=== PATIENT | male | born 1975 | race Caucasian/White ===

== ENCOUNTER → 2018-03-12 12:19 | Outpatient (CLI) | payer OTHER, SELFPAY ==
--- NOTE | 2018-03-12 | DI.RAD.S_ITS ---
PROCEDURE: XR LUMBAR SPINE 2-3V INDICATIONS: LOW BACK PAIN, HISTORY OF [id number] TECHNIQUE: 3 views of the lumbar spine were acquired. COMPARISON: [facility], , XR PELVIS 1-2V, 03/12/2018, 12:06. FINDINGS: Bones: Grade 1/2 anterolisthesis is seen at L5-S1, with associated increasing bilateral pars defects. Moderate disc space narrowing is seen at L5-S1. The disc spaces otherwise appear well-preserved. No acute fractures are seen. No suspicious lytic or blastic lesions are seen. Soft tissues: Overlying bowel gas pattern is normal. No suspicious soft tissue calcifications. IMPRESSION: Grade 1/2 L5-S1 anterolisthesis with associated pars defects and degenerative changes. Dictated by: Jeffrey Butler M.D. on 03/12/2018 at 11:51 Approved by: Jeffrey Butler M.D. on 03/12/2018 at 11:52
--- NOTE | 2018-03-12 | DI.RAD.S_ITS ---
PROCEDURE: XR PELVIS 1-2V INDICATIONS: LOW BACK PAIN, HISTORY OF [id number] TECHNIQUE: 1 view(s) of the pelvis acquired. COMPARISON: [facility], , XR LUMBAR SPINE 2-3V, 03/12/2018, 12:06. FINDINGS: Bones: No fractures or dislocations. No suspicious bony lesions. There is mild to moderate superior joint space narrowing seen of both hips, with associated remodeling changes with subchondral sclerosis and osteophyte formation. Soft tissues: Visualized bowel gas pattern is normal. No suspicious soft tissue calcifications. IMPRESSION: Age-appropriate degenerative changes of the hips. Dictated by: Jeffrey Butler M.D. on 03/12/2018 at 11:53 Approved by: Jeffrey Butler M.D. on 03/12/2018 at 11:53
== END ==
PROVIDERS: Family Provider Family Medicine; PCP Family Medicine; Visit Provider Chiropractor
DX: M43.17 Spondylolisthesis, lumbosacral region (principal); M48.07 Spinal stenosis, lumbosacral region; M54.5 Low back pain
CPT/HCPCS: 72100; 72170

== ENCOUNTER → 2018-12-02 07:26 | Outpatient (CLI) | payer OTHER, SELFPAY ==
[2018-12-02 08:41] LABS: Add Manual Diff / Slide Review NO; Basophils Absolute Auto 0 /uL (0-100); Basophils Percent Auto 0.6 % (0-2); Eosinophils Absolute Auto 100 /uL (0-450); Eosinophils Percent Auto 1.6 % (2-4); Hematocrit 44.2 % (41-53); Hemoglobin 15.1 g/dL (13.5-17.5); Lymphocytes Absolute Auto 1600 /uL (1100-4500); Lymphocytes Percent Auto 41.4 % (25-40); Mean Corpuscular HGB Conc 34.2 % (30-36); Mean Corpuscular Hemoglobin 32.6 PG (26-34); Mean Corpuscular Volume 95.4 fL (80-100); Monocytes Absolute Auto 400 /uL (0-900); Neutrophils Absolute Auto 1800 /uL (1500-7000); Neutrophils Percent Auto 45.4 % (50-75); Platelet Count 241 X10^3/uL (150-400); Red Blood Cell Count 4.63 X10^6/uL (4.5-5.9); Red Cell Distribution Width 12.7 % (11.6-14.8); White Blood Cell Count 3.9 X10^3/uL (4.5-11.0)
[2018-12-02 09:18] LABS: Alanine Aminotransferase 31 IU/L (21-72); Albumin 4.3 g/dL (3.5-5.0); Albumin Globulin Ratio 1.5 (1.0-2.8); Alkaline Phosphatase 52 U/L (38-126); Aspartate Aminotransferase 26 IU/L (17-59); Bilirubin Total 0.7 mg/dL (0.2-1.3); Blood Urea Nitrogen 18 mg/dL (9-20); Carbon Dioxide 30 mmol/L (22-32); Chloride 102 mmol/L (98-107); Cholesterol 209 mg/dL (140-199); Estimated Glomerular Filt Rate > 60.0 mL/min (>60); Globulin 2.8 g/dL (1.7-4.1); Glucose 88 mg/dL (70-100); HDL Cholesterol 59 mg/dL (40-60); HEMOLYSIS < 15 (0-50); LDL Cholesterol Calculated 133 mg/dL (<100); Potassium 3.8 mmol/L (3.4-5.1); Sodium 139 mmol/L (137-145); Total Protein 7.1 g/dL (6.3-8.2); Triglycerides 83 mg/dL (35-150)
[2018-12-02 09:47] LABS: Thyroid Stimulating Hormone 2.23 uIU/mL (0.47-4.68)
== END ==
PROVIDERS: PCP Family Medicine; Visit Provider Family Medicine
DX: E78.5 Hyperlipidemia, unspecified (principal); R89.9 Unspecified abnormal finding in specimens from other organs, systems and tissues
CPT/HCPCS: 36415; 80053; 80061; 84443; 85025

== ENCOUNTER → 2018-12-09 10:02 | Outpatient (CLI) | payer OTHER, SELFPAY ==
[2018-12-09 11:03] LABS: C-Reactive Protein Quant < 0.5 mg/dL (<1.0)
[2018-12-09 11:30] LABS: Prostate Specific Antigen 0.749 ng/mL (0.10-4.00)
[2018-12-09 11:39] LABS: Erythrocyte Sedimentation Rate 3 MM/HR (0-15)
[2018-12-09 12:17] LABS: Rheumatoid Factor < 8.6 IU/mL (<12.0)
[2018-12-11 19:26] LABS: ANA Screen, IFA Negative (Negative)
== END ==
PROVIDERS: PCP Family Medicine; Visit Provider Family Medicine
DX: M19.90 Unspecified osteoarthritis, unspecified site (principal); R32 Unspecified urinary incontinence
CPT/HCPCS: 36415; 84153; 85651; 86038; 86140; 86430

== ENCOUNTER → 2019-02-15 13:44 | Outpatient (CLI) | payer OTHER, SELFPAY ==
--- NOTE | 2019-02-15 14:59 | PM.TREADMILL ---
Cardiac Stress Test Report Referral & Results Date Patient Seen: 02/15/19 Time Patient Seen: 14:59 Requesting provider: Umberto Wong Indication: Family history, risk factors Rest ECG: Unremarkable Procedure Note: Today following both written and verbal informed consent, the patient was exercised according to a standard Cecilio protocol. The patient exercised for a total of 12 minutes 17 seconds achieving a maximum heart rate of 160 for. Patient's maximum systolic blood pressure was 152. This was an estimated 12.8 MET's. Exercise was terminated because patient's targets had been met. There are no ST-T segment changes Normal heart rate and blood pressure response to exercise Functional aerobic impairment rates about-10% on the active scale, or 110% of normal Rare PAC identified Impression: No evidence of ischemia Excellent exercise capacity (test was stopped prior to patient reaching absolute maximum due to targets having been met) Please note: Actual ECG tracings can be found in the PACS system.
== END ==
PROVIDERS: PCP Family Medicine; Visit Provider Family Medicine
DX: E78.5 Hyperlipidemia, unspecified (principal); Z82.49 Family history of ischemic heart disease and other diseases of the circulatory system
CPT/HCPCS: 93016; 93017; 93018

== ENCOUNTER → 2020-01-06 08:52 | Outpatient (CLI) | payer OTHER, SELFPAY ==
[2020-01-06 10:05] LABS: Hematocrit 45.3 % (41-53); Hemoglobin 15.3 g/dL (13.5-17.5); Mean Corpuscular HGB Conc 33.9 % (30-36); Mean Corpuscular Hemoglobin 33.1 PG (26-34); Mean Corpuscular Volume 97.8 fL (80-100); Platelet Count 229 X10^3/uL (150-400); Red Blood Cell Count 4.63 X10^6/uL (4.5-5.9); Red Cell Distribution Width 12.8 % (11.6-14.8); White Blood Cell Count 3.8 X10^3/uL (4.5-11.0)
[2020-01-06 10:50] LABS: Alanine Aminotransferase 26 IU/L (<50); Albumin 4.5 g/dL (3.5-5.0); Albumin Globulin Ratio 1.6 (1.0-2.8); Alkaline Phosphatase 54 U/L (38-126); Aspartate Aminotransferase 27 IU/L (17-59); BUN Creatinine Ratio 23.5 (6-22); Bilirubin Total 0.5 mg/dL (0.2-1.3); Blood Urea Nitrogen 20 mg/dL (9-20); Calcium 9.5 mg/dL (8.4-10.2); Carbon Dioxide 29 mmol/L (22-32); Chloride 103 mmol/L (98-107); Cholesterol 214 mg/dL (140-199); Estimated Glomerular Filt Rate > 60.0 mL/min (>60); Globulin 2.9 g/dL (1.7-4.1); Glucose 92 mg/dL (70-100); HDL Cholesterol 65 mg/dL (40-60); HEMOLYSIS < 15 (0-50); LDL Cholesterol Calculated 130 mg/dL (<100); Potassium 4.7 mmol/L (3.4-5.1); Sodium 139 mmol/L (137-145); Total Protein 7.4 g/dL (6.3-8.2); Triglycerides 93 mg/dL (35-150)
[2020-01-06 11:08] LABS: Prostate Specific Antigen Scrn 0.605 ng/mL (0.1-4.0)
[2020-01-06 15:02] LABS: Neutrophils Absolute Manual 1824 /uL (3000-5900); RBC Morphology Normal Morphology; Total Cells Counted 100
== END ==
PROVIDERS: PCP Family Medicine; Referring Provider Family Medicine; Visit Provider Family Medicine
DX: Z13.1 Encounter for screening for diabetes mellitus (principal); E78.5 Hyperlipidemia, unspecified; Z12.5 Encounter for screening for malignant neoplasm of prostate
CPT/HCPCS: 36415; 80053; 80061; 85025; G0103

== ENCOUNTER → 2020-06-26 16:15 | Outpatient (CLI) | payer OTHER, SELFPAY ==
[2020-06-26 16:21] LABS: Bacteria Urine None Seen
[2020-06-26 17:03] LABS: Appearance Urine UA CLEAR; Bilirubin Urine UA NEGATIVE (NEGATIVE); Color Urine UA YELLOW; Glucose Urine UA NEGATIVE (Negative); Ketones Urine UA NEGATIVE (NEGATIVE); Leukocyte Esterase Urine UA NEGATIVE (NEGATIVE); Nitrite Urine UA NEGATIVE (Negative); Occult Blood Urine UA TRACE-INTACT (Negative); Protein Urine UA NEGATIVE (Negative); Specific Gravity Urine UA 1.015 (1.000-1.035); Urobilinogen Urine UA 0.2 E.U./dL (0.2)
[2020-06-26 17:16] LABS: Culture Indicated Urine Cult Not Indicated; RBC Urine 0-1/HPF (0-5/HPF); WBC Urine 0-1/HPF (0-5/HPF)
== END ==
PROVIDERS: PCP Family Medicine; Referring Provider Family Medicine; Visit Provider Family Medicine
DX: N50.89 Other specified disorders of the male genital organs (principal)
CPT/HCPCS: 81001

== ENCOUNTER → 2021-01-17 10:22 | Outpatient (CLI) | payer OTHER, SELFPAY ==
--- NOTE | 2021-01-17 10:25 | DI.RAD.S_ITS ---
PROCEDURE: XR SHOULDER LT MIN 2V INDICATIONS: lef shoulder pain TECHNIQUE: 3 views of the shoulder were acquired. COMPARISON: None. FINDINGS: Bones: No fractures or dislocations. No suspicious bony lesions. Visualized ribs appear intact. Soft tissues: No suspicious soft tissue calcifications. IMPRESSION: Normal left shoulder Dictated by: Brian Pink M.D. on 01/17/2021 at 11:01 Approved by: Brian Pink M.D. on 01/17/2021 at 11:02
[2021-01-17 11:14] LABS: Add Manual Diff / Slide Review NO; Basophils Absolute Auto 0 /uL (0-100); Basophils Percent Auto 0.2 % (0-2); Eosinophils Absolute Auto 0 /uL (0-450); Hematocrit 44.9 % (41-53); Hemoglobin 15.2 g/dL (13.5-17.5); Lymphocytes Absolute Auto 1200 /uL (1100-4500); Lymphocytes Percent Auto 26.7 % (25-40); Mean Corpuscular HGB Conc 33.9 % (30-36); Mean Corpuscular Hemoglobin 33.3 PG (26-34); Mean Corpuscular Volume 98.1 fL (80-100); Monocytes Absolute Auto 500 /uL (0-900); Monocytes Percent Auto 10.5 % (3-14); Neutrophils Absolute Auto 2700 /uL (1500-7000); Neutrophils Percent Auto 61.6 % (50-75); Platelet Count 255 X10^3/uL (150-400); Red Blood Cell Count 4.57 X10^6/uL (4.5-5.9); Red Cell Distribution Width 13.1 % (11.6-14.8); White Blood Cell Count 4.3 X10^3/uL (4.5-11.0)
[2021-01-17 11:29] LABS: Alanine Aminotransferase 27 IU/L (<50); Albumin 4.3 g/dL (3.5-5.0); Albumin Globulin Ratio 1.4 (1.0-2.8); Alkaline Phosphatase 56 U/L (38-126); Aspartate Aminotransferase 32 IU/L (17-59); BUN Creatinine Ratio 19.5 (6-22); Bilirubin Total 0.5 mg/dL (0.2-1.3); Blood Urea Nitrogen 16 mg/dL (9-20); Calcium 9.7 mg/dL (8.4-10.2); Carbon Dioxide 32 mmol/L (22-32); Chloride 101 mmol/L (98-107); Cholesterol 211 mg/dL (140-199); Estimated Glomerular Filt Rate > 60.0 mL/min (>60); Globulin 3.1 g/dL (1.7-4.1); Glucose 105 mg/dL (70-100); HDL Cholesterol 75 mg/dL (40-60); HEMOLYSIS < 15 (0-50); LDL Cholesterol Calculated 119 mg/dL (<100); Potassium 4.2 mmol/L (3.4-5.1); Sodium 138 mmol/L (137-145); Total Protein 7.4 g/dL (6.3-8.2); Triglycerides 86 mg/dL (35-150)
[2021-01-17 12:11] LABS: TSH w/ Reflex to FT4 2.67 uIU/mL (0.47-4.68)
== END ==
PROVIDERS: Family Provider Family Medicine; PCP Family Medicine; Referring Provider Family Medicine; Visit Provider Family Medicine
DX: M25.512 Pain in left shoulder (principal); E78.5 Hyperlipidemia, unspecified; J45.909 Unspecified asthma, uncomplicated
CPT/HCPCS: 36415; 73030; 80053; 80061; 84443; 85025

== ENCOUNTER 2021-03-09 08:15 | Outpatient (RCR) | payer OTHER, SELFPAY ==
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
--- NOTE | 2021-01-16 15:53 | PT.OPPOC ---
Addendum entered and electronically signed by Deyanira Chopra, STEPHEN 03/09/21 09:27: Requested to send to Dr. Deluna after d/c Original Note: Physical, Occupational & Speech Therapy At [facility] Current Diagnoses Pain in unspecified shoulder (01/16/21) Visit Care Team Role Provider Type Carlos Deluna MD Attending Provider Physician Family Provider Primary Care Provider Referring Provider Specialty: Family Practice Address: [address] [place] [address], [id number] Email: [email or web address] Plan Of Care PT-OP-T Assessment and Plan Start: 01/12/21 16:10 Freq: Status: Active Protocol: Document 01/16/21 13:26 MB (Rec: 01/16/21 15:53 MB [id number]) Physical Therapy Assessment Rehab Potential Rehabilitation Potential Fair Evaluation Complexity Number of Personal Factors/Comorbidities 1-2 Number of Body Systems Impaired 1-2 Clinical Presentation at Evaluation Evolving Impairments Impairments Activity Tolerance,Functional Activities,Functional Mobility ,Pain,Posture,ROM,Soft Tissue Mobility,Strength Goals 4 Sewing Machine Adjuster Goal (LTG) Pt will perform progressive HEP with I including postural, flexibility, stabilization and strengthening exercises to improve pain and strength by 03/18/21. LTG Duration 8 weeks 3 Sewing Machine Adjuster Goal (LTG) Pt will present with equal B shoulder extension to improve functional tasks such as putting on seatbelt by 03/18/21. 2 Sewing Machine Adjuster Goal (LTG) Pt will present with 5/5 B shoulder ER and IR strength to improve overall UE function by 03/18/21. LTG Duration 8 weeks 1 Halfway Goal (LTG) Pt will present with an improved QuickDASH score to reflect no more than 5% impairment to allow return to normal active lifestyle by 03/18. LTG Duration 8 weeks Assessment Summary Assessment Pt is a 45 y/o male presenting with left shoulder pain that can be anterior, posterior and close to the arm pit depending on movement. The pain started after he did heavy hammering on concrete in diagonal plane while standing . His left shoulder was moving into IR and horizontal adduction across the front of his body. He presents with reduced active left shoulder extension in standing compared to the right and reports anterior shoulder pain. He does not participate with horizontal abduction AROM and reports concern for pain. His strength in many positions is pretty good and he does not have limited passive ER or IR in hook lying. He does present with some mild end-range limitation of active left shoulder IR in standing. He is hypermobile and strong overall and this may mask an injury to the labrum. Pain in different areas is concerning for injury. Also, his pain is getting worse. He sees Dr. Deluna tomorrow and recommend ortho consult and diagnostic testing to determine injury. Recommend start PT to see if conservative therapy helps and he will benefit from postural , thoracic flexibility, stablization and strengthening interventions. He states that he tried pull ups that hurt him and that he does push-ups everyday. PT does recommend that he stops the push-ups as these provoke pect and anterior tightness which does not help pain and limitations with extension and horizontal abduction. PT ed pt in this. Physical Therapy Plan Frequency and Duration Frequency of Treatment 2x/Week Duration of Treatment 8 weeks Plan of Care Start Date 01/16/21 Plan of Care End Date 03/19/21 Therapeutic Interventions Therapeutic Interventions Balance Training,Canalithic Repositioning,Home Exercise Program,Joint Mobilizations, Manual Therapy,Neuromuscular Re-education,Patient/Caregiver Education,Self-Care/Home Management,Soft Tissue Mobilization,Taping, Therapeutic Activities, Therapeutic Exercises Modalities Cold Pack/Ice Massage,Hot Packs,Ultrasound Next Visit Focus/Plan Next Note Type Treatment Note Next Visit Plan Consider lying over pool noodle for thoracic and pect stretch vs side lying open book with elbows bent and hands behind head with rib breathing to work on pect and thoracic mobility, ed in scapular retraction in hook lying and against wall, possible ER exercise with band standing with back against wall and ed in scapular retraction, other stabilization exercises Plan of Care Dates Plan of Care Start Date 01/16/21 Plan of Care End Date 03/19/21 Electronically Signed by: Deyanira Chopra, PT 01/16/21 3226 Please Sign and Return: I have reviewed this Plan of Care and certify that the skilled therapy services above are required to meet the patient?s needs. Physician Signature Date Printed Name and Credentials Clinical Instructor Signature Printed Name and Credentials
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
== END 2021-03-09 09:01 | disposition home or self-care (01) ==
LOC: PHYS 08:15
PROVIDERS: Family Provider Family Medicine; PCP Family Medicine; Referring Provider Family Medicine; Visit Provider Family Medicine
DX: M25.519 Pain in unspecified shoulder (principal)
CPT/HCPCS: 97110; 97140; 97161; 97535

== ENCOUNTER → 2021-03-30 09:07 | Outpatient (CLI) | payer OTHER, SELFPAY ==
[2021-03-30 11:36] LABS: COVID19 -Nasal RAPID Negative (Negative)
== END ==
PROVIDERS: Family Provider Family Medicine; PCP Family Medicine; Visit Provider Surgery
DX: Z20.822 Contact with and (suspected) exposure to COVID-19 (principal); Z01.812 Encounter for preprocedural laboratory examination
CPT/HCPCS: 87635; C9803

== ENCOUNTER 2021-04-02 08:11 | Day surgery (SDC) | payer OTHER, SELFPAY ==
[2021-04-02 08:30] VITALS: BP 120/68; PULSE 70; RESP 14; TEMP 36.5; O2SAT 99; BMI 22.7
[2021-04-02] MEDS: LACTATED RINGERS 1,000 ML 42 ML IV (08:30)
--- NOTE | 2021-04-02 08:58 | P.HP_ITS ---
History of Present Illness History of Present Illness Date Patient Seen: 04/02/21 Time Patient Seen: 08:58 Chief complaint: SCREENING COLONOSCOPY Narrative: The patient presents for colorectal sreening. Previous colonoscopy 5 years ago demonstrated benign polyps Family history of malignant colonic polyp. On further history denies any recent gastrointestinal symptoms. No nausea, vomiting, abdominal pain, loss of appetite, unexplained weight loss, change in bowel habits, diarrhea, constipation, melena, hematochezia, or bright red blood per rectum. Patient History Medical History (Updated 01/18/21 @ 08:28 by Carlos Deluna MD) Allergies Asthma Chicken pox (~1976) Chronic back pain (~2015) Epididymitis Mumps (~1982) Perthes disease Rubella (~1984) Spondylisthesis (~2002) Surgical History (Updated 09/06/20 @ 21:17 by Kathy Rosado) Anesthesia History of cardiovascular stress test (~02/2019) History of colonoscopy (~04/2015) Status post arthroscopy of hip (~1978) [place] teeth removed (~2001) Family & Social History Family History (Updated 09/06/20 @ 21:29 by Kathy Rosado) Brother Age: 58 Diabetes mellitus Obesity Hypertension Father Dementia Pulmonary embolism History of heart attack Alzheimers disease Cancer Diabetes mellitus Heart disease Hypertension High cholesterol Stroke Perthe's disease of hip Grandmother Heart disease Congestive heart failure Stroke Autoimmune disease Grandfather Heart disease Grandmother Heart disease Sister Age: 63 Cancer Perthe's disease of hip Mother Thyroid disease Brother Sleep apnea Grandfather Heart disease Prostate disease Grandfather Cancer Grandmother Diabetes mellitus Grandmother Diabetes mellitus Heart disease Social History: household members spouse Tobacco & Substance use: Smoking Status Never smoker alcohol intake current alcohol intake frequency holiday/special occasion Substance Use Type does not use Meds Home Medications and Allergies Home Medications Medication Instructions Recorded Confirmed Type No Known Home Medications 04/02/21 04/02/21 History Allergies Allergy/AdvReac Type Severity Reaction Status Date / Time ANESTHESIA AdvReac Mild SENSITIVITY-HARD Uncoded 04/02/21 08:26 TO WAKE UP 01/11/15 Review of Systems Review of Systems ROS: Yes All systems reviewed with the patient and are negative except as otherwise documented Exam Vital Signs (past 8 hours): - 04/02/21 08:30 Temperature 97.7 F Pulse Rate 70 Respiratory Rate 14 Blood Pressure 120/68 Pulse Oximetry 99 Oxygen Delivery Method Room Air Narrative Exam Narrative: Constitutional-he is oriented to person, place and time. No apparent distress Cardiovascular- regular rate, no peripheral edema Pulmonary-unlabored respiratory effort, no audible wheezing Abdominal-soft, non-tender, non-distended Musculoskeletal-no cyanosis or clubbing Neurological-nonfocal, normal strength throughout, normal gait. Skin-warm and dry Assessment & Plan Assessment & Plan narrative: The patient requires colorectal screening and colonoscopy is recommended. Technical details were discussed. Risks, benefits, alternatives explained. Risks including but not limited to myocardial infarction, aspiration, bleeding, pain, missed lesion, incomplete examination, need for further radiographic studies, colonic perforation, and need for major abdominal surgery were discussed. All questions were answered to their s atisfaction, and they are in agreement with this plan.
[2021-04-02] MEDS: fentaNYL 250 MCG/5 ML INJ IV (09:10)
[2021-04-02] MEDS: MIDAZOLAM 5 MG/5 ML VIAL IV (09:10)
--- NOTE | 2021-04-02 09:27 | PM.OP.ENDO ---
Operative Date/Time/Diagnoses Date of procedure: 04/02/21 Time of procedure: 09:27 Pre-op diagnosis: personal history of colonic polyps Post-op diagnosis: same Procedure & Clinicians Study performed: colonoscopy Same procedure as scheduled: Yes Indications: personal history of colonic polyps Surgeon: Colten Antunez Procedure Notes Procedure in detail: Medications: Conscious sedation using 5mg IV midazolam and 150mcg IV of fentanyl The history and physical was performed/updated and the patient is ASA class is 2. The procedure was discussed in detail with the patient. Potential risks complications including infection, bleeding, missed diagnosis, perforation, need for surgery, and were explained. Their questions were answered and informed consent was obtained. Patient was brought to the procedure room and placed standard monitoring equipment. The patient's vital signs were monitored continuously throughout the entire procedure. Prior to starting time-out was performed. The patient was placed in the left lateral recumbent position. Procedural sedation was administered. Examination began with a thorough inspection of the perianal area there was no evidence of fissures, fistulae, external hemorrhoids or cutaneous malignancy. The colonoscopy scope was then placed into the anal canal and was advanced to the cecum, which was identified by the ileocecal valve, the appendiceal orifice and the confluence of the taenia. The scope was then slowly withdrawn examining colon thoroughly in all directions, irrigating it of any residual stool. FINDINGS 1. No masses or polyps 2. No colitis 3. Normal healthy colon The patient tolerated the procedure well. They will be discharged once criteria are met. The prep was of good/excellent quality. The withdrawl time was 6 minutes. The sedation time was 23 minutes. Specimen(s): none sent Complications: none Impression: normal colonoscopy Post-procedure Recommendations: Colonscopy in 5 years Disposition: same day surgery
[2021-04-02 09:31] VITALS: BP 105/59; PULSE 16; RESP 16; TEMP 36.3; O2SAT 96
[2021-04-02 09:36] VITALS: BP 111/70; PULSE 65; RESP 16; O2SAT 98
[2021-04-02 09:52] VITALS: BP 114/68; PULSE 66; RESP 16; TEMP 36.7; O2SAT 99
--- NOTE | 2021-04-02 09:56 | SUR.PHASEII ---
Drinking po flds, belly soft, wanting to go, ride called, pt left when ready and left in stable condition.
== END 2021-04-02 09:56 | disposition home or self-care (01) ==
PROVIDERS: Family Provider Family Medicine; PCP Family Medicine; Referring Provider Surgery; Visit Provider Surgery
PROC: 0DJD8ZZ Inspection of Lower Intestinal Tract, Via Natural or Artificial Opening Endoscopic (ICD-10-PCS; CPT 45378; principal; 2021-04-02 09:15)
DX: Z12.11 Encounter for screening for malignant neoplasm of colon (principal); Z86.010 Personal history of colon polyps
CPT/HCPCS: 45378; 99152; J2250; J3010

== ENCOUNTER → 2021-08-19 09:30 | Outpatient (CLI) | payer OTHER, SELFPAY ==
--- NOTE | 2021-08-19 09:31 | DI.RAD.S_ITS ---
PROCEDURE: XR ANKLE RT MIN 3V INDICATIONS: trauma, ATFL pain, rt lateral ankle/fibular pain TECHNIQUE: 3 views of the ankle were acquired. COMPARISON: None. FINDINGS: Bones: There is a mildly displaced fracture of the lateral aspect of the talus extending to the articular surface. In addition there is likely a nondisplaced fracture of the posterior malleolus. Alignment is normal. Minimal spurring of the medial aspect of the tibiotalar joint. Soft tissues: Soft tissue swelling and joint effusion. IMPRESSION: Mildly displaced fracture of the lateral tibia at the level of the distal tibial fibular joint with intra-articular extension. In addition there is a nondisplaced fracture of the posterior malleolus. Dictated by: Rod Arnold D.O. on 08/19/2021 at 9:02 Approved by: Rod Arnold D.O. on 08/19/2021 at 9:04
--- NOTE | 2021-08-19 09:31 | DI.RAD.S_ITS ---
PROCEDURE: XR KNEE RT 3V INDICATIONS: trauma, ATFL pain, rt lateral ankle/proximal fibular pain TECHNIQUE: 3 views of the knee were acquired. COMPARISON: [facility], CR, XR ANKLE RT MIN 3V, 08/19/2021, 9:24. FINDINGS: Bones: There is a nondisplaced oblique fracture of the proximal fibular diaphysis. No additional fracture. Joint spacing is maintained. Alignment is normal. Soft tissues: No joint effusion. Benign appearing soft tissue calcifications of the leg. IMPRESSION: Nondisplaced oblique fracture of the proximal fibular diaphysis. Dictated by: Rod Arnold D.O. on 08/19/2021 at 9:04 Approved by: Rod Arnold D.O. on 08/19/2021 at 9:06
== END ==
PROVIDERS: Family Provider Family Medicine; PCP Family Medicine; Referring Provider Nurse Practitioner Critical Care Medicine; Visit Provider Nurse Practitioner Critical Care Medicine
DX: S92.141A Displaced dome fracture of right talus, initial encounter for closed fracture (principal); S82.54XA Nondisplaced fracture of medial malleolus of right tibia, initial encounter for closed fracture; S82.435A Nondisplaced oblique fracture of shaft of left fibula, initial encounter for closed fracture; X58.XXXA Exposure to other specified factors, initial encounter
CPT/HCPCS: 73562; 73610

== ENCOUNTER 2021-08-19 11:31 | Emergency (ER) | payer OTHER, SELFPAY ==
[2021-08-19 12:19] VITALS: BP 126/77; PULSE 87; RESP 16; TEMP 36.8; O2SAT 97; BMI 23.5
--- NOTE | 2021-08-19 12:37 | DI.CT.S_ITS ---
PROCEDURE: CT LE RT WO CON INDICATIONS: ankle fracture TECHNIQUE: Noncontrast 1-1.5 mm axial sections acquired from the mid-patella to the proximal tibia, with coronal and sagittal reformats. COMPARISON: [facility], CR, XR KNEE RT 3V, 08/19/2021, 9:24. FINDINGS: Image quality: Excellent. Bones: Again noted is a mildly displaced fracture of the lateral aspect of the distal tibia at the level of the distal tibial fibular syndesmosis. This demonstrates approximately 3 mm of lateral displacement. Additional mildly comminuted and displaced predominantly oblique fracture of the proximal fibular diaphysis is noted. There is approximately 2 mm of lateral displacement. Nondisplaced very small fracture of the posterior malleolus is noted. There is mild degenerative tricompartment spurring of the knee. No tibial plateau fracture. Soft tissues: Small knee joint effusion. Moderate size ankle joint effusion. There is soft tissue swelling noted adjacent to the fractures within the proximal leg and ankle. Benign appearing soft tissue calcifications within the posterior leg. IMPRESSION: Mildly displaced fractures of the proximal fibula and distal tibia as previously noted. Additional nondisplaced fracture of the posterior malleolus also again identified. No additional fractures. Very mild degenerative changes of the knee. Dictated by: Rod Arnold D.O. on 08/19/2021 at 12:23 Approved by: Rod Arnold D.O. on 08/19/2021 at 12:29
--- NOTE | 2021-08-19 12:39 | ED.LOWEXIN ---
HPI - Extremity Injury (Lower) General Chief Complaint: Extremity Injury, Lower Stated Complaint: Fibula Injury, Sent from [facility] for Further Eval Time Seen by Provider: 08/19/21 12:16 Source: patient Mode of arrival: Ambulatory History of Present Illness HPI Narrative: Patient presents to the ED from the walk-in clinic diagnosed with a ankle fracture and was placed in a walking boot and was referred to the ED for additional imaging. Patient reports that he was skiing suffered a fall and as result twisted his ankle the man had severe pain immediately upon the fall. Ankle appears stable at this time secured in the walking boot pain is tolerable at this time. No other reported injury or complaints noted. Related Data Home Medications Medication Instructions Recorded Confirmed No Known Home Medications 04/02/21 08/19/21 Previous Rx's Medication Instructions Recorded ketoconazole 2 % topical cream See Rx Instructions TOPICAL BID 04/20/21 #60 g Allergies Allergy/AdvReac Type Severity Reaction Status Date / Time ANESTHESIA AdvReac Mild SENSITIVITY-HARD Uncoded 08/19/21 09:07 TO WAKE UP 01/11/15 Review of Systems Constitutional Constitutional: Denies chills, Denies fatigue, Denies fever(s), Denies frequent falls, Denies lethargy and Denies weakness Eyes Eyes: Denies change in vision, Denies eye discharge, Denies irritation and Denies loss of vision ENT Ears, Nose, Mouth, and Throat: Denies change in voice, Denies dizziness, Denies neck pain, Denies sore throat and Denies throat swelling Cardiovascular Cardiovascular: Denies chest pain, Denies irregular heart rhythm, Denies lightheadedness, Denies palpitations, Denies dyspnea, Denies dyspnea on exertion and Denies orthopnea Respiratory Respiratory: Denies cough, Denies dyspnea, Denies dyspnea on exertion and Denies wheezing Gastrointestinal Gastrointestinal: Denies abdominal pain, Denies change in bowel habits, Denies diarrhea, Denies nausea and Denies vomiting Genitourinary Genitourinary: Denies hematuria, Denies flank pain, Denies urinary incontinence and Denies urinary urgency Musculoskeletal Musculoskeletal: Denies back pain, Reports arthralgias, Reports joint swelling, Denies muscle weakness, Denies neck pain, Denies numbness and Denies tingling Integumentary/Breasts Skin/Breast: Denies pruritus, Denies erythema, Denies rash and Denies wounds Neurologic Neurologic: Denies behavioral changes, Denies confusion, Denies dizziness, Denies frequent falls, Denies loss of vision, Denies numbness, Denies tingling and Denies weakness Psychiatric Psychiatric: Denies anxiety, Denies behavioral changes, Denies confusion, Denies depression, Denies homicidal ideation and Denies suicidal ideation Endocrine Endocrine: Denies fatigue, Denies flushing and Denies palpitations Hematologic/Lymphatic Hematologic/Lymphatic: Denies easy bruising Allergic/Immunologic Allergic/Immunologic: Denies urticaria, Denies throat swelling and Denies wheezing Patient History Medical History Allergies Asthma Chicken pox (~1976) Chronic back pain (~2015) Epididymitis Mumps (~1982) Perthes disease Rubella (~1984) Spondylisthesis (~2002) Surgical History Anesthesia History of cardiovascular stress test (~02/2019) History of colonoscopy (~04/2015) Status post arthroscopy of hip (~1978) [place] teeth removed (~2001) Family History Brother Age: 58 Diabetes mellitus Obesity Hypertension Father Dementia Pulmonary embolism History of heart attack Alzheimers disease Cancer Diabetes mellitus Heart disease Hypertension High cholesterol Stroke Perthe's disease of hip Grandmother Heart disease Congestive heart failure Stroke Autoimmune disease Grandfather Heart disease Grandmother Heart disease Sister Age: 63 Cancer Perthe's disease of hip Mother Thyroid disease Brother Sleep apnea Grandfather Heart disease Prostate disease Grandfather Cancer Grandmother Diabetes mellitus Grandmother Diabetes mellitus Heart disease Social History household members: spouse Smoking Status: Never smoker alcohol intake: current Smoking Status: Never smoker alcohol intake frequency: holidays/special occasions only Substance Use Type: does not use Exam Initial Vital Signs Initial Vital Signs: Vital Signs Temperature 98.3 F 08/19/21 12:19 Pulse Rate 87 08/19/21 12:19 Respiratory Rate 16 08/19/21 12:19 Blood Pressure 126/77 08/19/21 12:19 Pulse Oximetry 97 08/19/21 12:19 Const General: cooperative, healthy appearing, comfortable and well developed Nutritional Appearance: average body habitus Orientation: Orientation Extrem Right lower extremity: normal to inspection and ankle Course Course Course Narrative: Dr. Powell was contacted and the CT results were discussed. Patient will need to undergo outpatient surgery, the clinic will contact the patient tomorrow to arrange for the clinic visit. Orders Ordered: ED Orders 08/19/21 12:37 CT LE RT wo con Stat Discontinued Medications Ibuprofen (Ibuprofen 600 Mg Tablet) 600 mg PO NOW ONE Stop: 08/19/21 13:34 Last Admin: 08/19/21 13:44 Dose: 600 mg Documented by: Consultations Consultation #1: Dr. Powell was consulted and the CT results were reviewed. Vital Signs Vital signs: Vital Signs - 8 hr 08/19/21 12:19 Temperature 98.3 F Pulse Rate 87 Respiratory Rate 16 Blood Pressure 126/77 Pulse Oximetry 97 MDM - Extremity Injury (Lower) Differential Diagnosis Differential diagnosis: Likely ankle fracture Imaging Data CT Lower Extremity: Radiologist's Impression: PROCEDURE:? CT LE RT WO CON ? INDICATIONS:? ankle fracture ? TECHNIQUE:? Noncontrast 1-1.5 mm axial sections acquired from the mid-patella to the proximal tibia, with coronal and sagittal reformats.? ? COMPARISON:? [facility], CR, XR KNEE RT 3V, 08/19/2021, 9:24. ? FINDINGS:? Image quality:? Excellent.? ? Bones:? Again noted is a mildly displaced fracture of the lateral aspect of the distal tibia at the level of the distal tibial fibular syndesmosis.? This demonstrates approximately 3 mm of lateral displacement.? Additional mildly comminuted and displaced predominantly oblique fracture of the proximal fibular diaphysis is noted.? There is approximately 2 mm of lateral displacement.? Nondisplaced very small fracture of the posterior malleolus is noted.? There is mild degenerative tricompartment spurring of the knee.? No tibial plateau fracture. ? Soft tissues:? Small knee joint effusion.? Moderate size ankle joint effusion.? There is soft tissue swelling noted adjacent to the fractures within the proximal leg and ankle.? Benign appearing soft tissue calcifications within the posterior leg. ? ? IMPRESSION:? ? Mildly displaced fractures of the proximal fibula and distal tibia as previously noted.? Additional nondisplaced fracture of the posterior malleolus also again identified.? No additional fractures. ? Very mild degenerative changes of the knee. Discharge Plan Departure Patient Disposition: Home Clinical Impression: Ankle fracture Activity Restrictions/Additional Instructions: Nonweightbearing keep splint on at all times. Prescriptions: No Action ketoconazole 2 % cream See Rx Instructions topical BID Qty: 60 0RF Rx Instructions: Apply topically to affected area twice daily No Known Home Medications 0RF Referrals: Carlos Deluna MD [Primary Care Provider] -
[2021-08-19 13:40] VITALS: BP 127/72; PULSE 73; RESP 18; O2SAT 98
[2021-08-19] MEDS: IBUPROFEN 600 MG TABLET PO (13:44)
--- NOTE | 2021-08-19 14:05 | PC.NURSE ---
in walking boot/support sent here for ct of right lower leg secondary to skiing accident/fracture
[2021-08-19 14:44] VITALS: BP 116/73; PULSE 73; RESP 16; O2SAT 98
== END 2021-08-19 15:00 | disposition home or self-care (01) ==
PROVIDERS: Emergency Provider Physician Assistant; Family Provider Family Medicine; PCP Family Medicine
DX: S82.831A Other fracture of upper and lower end of right fibula, initial encounter for closed fracture (principal); S82.301A Unspecified fracture of lower end of right tibia, initial encounter for closed fracture; S82.891A Other fracture of right lower leg, initial encounter for closed fracture; W18.30XA Fall on same level, unspecified, initial encounter; Y93.23 Activity, snow (alpine) (downhill) skiing, snowboarding, sledding, tobogganing and snow tubing; S92.141A Displaced dome fracture of right talus, initial encounter for closed fracture
CPT/HCPCS: 29505; 73562; 73610; 73700; 99283; 99284

== ENCOUNTER → 2022-04-10 07:19 | Outpatient (CLI) | payer OTHER, SELFPAY ==
[2022-04-10 08:53] LABS: Add Manual Diff / Slide Review NO; Basophils Absolute Auto 0 /uL (0-100); Basophils Percent Auto 0.3 % (0-2); Eosinophils Absolute Auto 100 /uL (0-450); Eosinophils Percent Auto 1.1 % (2-4); Hematocrit 43.7 % (41-53); Hemoglobin 14.9 g/dL (13.5-17.5); Lymphocytes Absolute Auto 1500 /uL (1100-4500); Lymphocytes Percent Auto 28.6 % (25-40); Mean Corpuscular HGB Conc 34.1 % (30-36); Mean Corpuscular Hemoglobin 32.9 PG (26-34); Mean Corpuscular Volume 96.5 fL (80-100); Monocytes Absolute Auto 600 /uL (0-900); Monocytes Percent Auto 11.3 % (3-14); Neutrophils Absolute Auto 3100 /uL (1500-7000); Neutrophils Percent Auto 58.7 % (50-75); Platelet Count 247 X10^3/uL (150-400); Red Blood Cell Count 4.53 X10^6/uL (4.5-5.9); Red Cell Distribution Width 13.3 % (11.6-14.8); White Blood Cell Count 5.3 X10^3/uL (4.5-11.0)
[2022-04-10 09:08] LABS: Alanine Aminotransferase 30 IU/L (<50); Albumin 4.2 g/dL (3.5-5.0); Albumin Globulin Ratio 1.5 (1.0-2.8); Alkaline Phosphatase 49 U/L (38-126); Aspartate Aminotransferase 26 IU/L (17-59); BUN Creatinine Ratio 22.5 (6-22); Bilirubin Total 0.7 mg/dL (0.2-1.3); Blood Urea Nitrogen 18 mg/dL (9-20); Carbon Dioxide 30 mmol/L (22-32); Chloride 103 mmol/L (98-107); Cholesterol 234 mg/dL (140-199); Estimated Glomerular Filt Rate > 60 mL/min (>60); Globulin 2.8 g/dL (1.7-4.1); Glucose 96 mg/dL (70-100); HDL Cholesterol 77 mg/dL (40-60); HEMOLYSIS < 15 (0-50); LDL Cholesterol Calculated 139 mg/dL (<100); Potassium 4.6 mmol/L (3.4-5.1); Sodium 139 mmol/L (137-145); Triglycerides 92 mg/dL (35-150)
[2022-04-10 09:38] LABS: TSH w/ Reflex to FT4 3.26 uIU/mL (0.47-4.68)
== END ==
PROVIDERS: Family Provider Family Medicine; PCP Family Medicine; Referring Provider Family Medicine; Visit Provider Family Medicine
DX: E78.5 Hyperlipidemia, unspecified (principal); M19.90 Unspecified osteoarthritis, unspecified site; S82.399A Other fracture of lower end of unspecified tibia, initial encounter for closed fracture; Z82.49 Family history of ischemic heart disease and other diseases of the circulatory system
CPT/HCPCS: 36415; 80053; 80061; 81241; 84443; 85025

== ENCOUNTER → 2023-07-02 09:06 | Outpatient (CLI) | payer OTHER, SELFPAY ==
[2023-07-02 10:56] LABS: Add Manual Diff / Slide Review NO; Basophils Absolute Auto 0 /uL (0-100); Basophils Percent Auto 0.6 % (0-2); Eosinophils Absolute Auto 100 /uL (0-450); Eosinophils Percent Auto 1.6 % (2-4); Hematocrit 44.2 % (41-53); Lymphocytes Absolute Auto 1500 /uL (1100-4500); Lymphocytes Percent Auto 42.2 % (25-40); Mean Corpuscular HGB Conc 33.9 % (30-36); Mean Corpuscular Hemoglobin 32.6 PG (26-34); Monocytes Absolute Auto 400 /uL (0-900); Monocytes Percent Auto 11.9 % (3-14); Neutrophils Absolute Auto 1600 /uL (1500-7000); Neutrophils Percent Auto 43.7 % (50-75); Platelet Count 250 X10^3/uL (150-400); Red Blood Cell Count 4.61 X10^6/uL (4.5-5.9); Red Cell Distribution Width 13.2 % (11.6-14.8); White Blood Cell Count 3.6 X10^3/uL (4.5-11.0)
[2023-07-02 11:27] LABS: Alanine Aminotransferase 33 IU/L (<50); Albumin 4.2 g/dL (3.5-5.0); Albumin Globulin Ratio 1.3 (1.0-2.8); Alkaline Phosphatase 46 U/L (38-126); Aspartate Aminotransferase 29 IU/L (17-59); Bilirubin Total 0.8 mg/dL (0.2-1.3); Blood Urea Nitrogen 15 mg/dL (9-20); Calcium 9.5 mg/dL (8.4-10.2); Carbon Dioxide 31 mmol/L (22-32); Chloride 100 mmol/L (98-107); Cholesterol 239 mg/dL (140-199); Estimated Glomerular Filt Rate > 60 mL/min (>60); Globulin 3.2 g/dL (1.7-4.1); Glucose 89 mg/dL (70-100); HDL Cholesterol 77 mg/dL (40-60); HEMOLYSIS < 15 (0-50); LDL Cholesterol Calculated 145 mg/dL (<100); Potassium 4.8 mmol/L (3.4-5.1); Sodium 137 mmol/L (137-145); Total Protein 7.4 g/dL (6.3-8.2); Triglycerides 85 mg/dL (35-150)
[2023-07-02 12:00] LABS: TSH w/ Reflex to FT4 2.75 uIU/mL (0.47-4.68)
== END ==
PROVIDERS: Family Provider Family Medicine; PCP Family Medicine; Referring Provider Family Medicine; Visit Provider Family Medicine
DX: E78.5 Hyperlipidemia, unspecified (principal)
CPT/HCPCS: 36415; 80053; 80061; 84443; 85025

== ENCOUNTER → 2025-01-07 07:16 | Outpatient (CLI) | payer OTHER, SELFPAY ==
[2025-01-07 08:02] LABS: Add Manual Diff / Slide Review NO; Basophils Absolute Auto 0 /uL (0-100); Basophils Percent Auto 0.5 % (0-2); Eosinophils Absolute Auto 100 /uL (0-450); Eosinophils Percent Auto 1.7 % (2-4); Hematocrit 42.6 % (41-53); Hemoglobin 14.7 g/dL (13.5-17.5); Lymphocytes Absolute Auto 1900 /uL (1100-4500); Lymphocytes Percent Auto 47.6 % (25-40); Mean Corpuscular HGB Conc 34.5 % (30-36); Mean Corpuscular Hemoglobin 32.8 PG (26-34); Mean Corpuscular Volume 95.1 fL (80-100); Monocytes Absolute Auto 500 /uL (0-900); Monocytes Percent Auto 13.4 % (3-14); Neutrophils Absolute Auto 1500 /uL (1500-7000); Neutrophils Percent Auto 36.8 % (50-75); Platelet Count 239 X10^3/uL (150-400); Red Blood Cell Count 4.48 X10^6/uL (4.5-5.9); Red Cell Distribution Width 12.9 % (11.6-14.8); White Blood Cell Count 4.1 X10^3/uL (4.5-11.0)
[2025-01-07 08:52] LABS: Alanine Aminotransferase 38 IU/L (<50); Albumin 4.2 g/dL (3.5-5.0); Albumin Globulin Ratio 1.7 (1.0-2.8); Alkaline Phosphatase 60 U/L (38-126); Aspartate Aminotransferase 35 IU/L (17-59); BUN Creatinine Ratio 26.1 (6-22); Bilirubin Total 0.7 mg/dL (0.2-1.3); Blood Urea Nitrogen 23 mg/dL (9-20); Calcium 9.1 mg/dL (8.4-10.2); Carbon Dioxide 28 mmol/L (22-32); Chloride 103 mmol/L (98-107); Cholesterol 234 mg/dL (140-199); Estimated Glomerular Filt Rate > 60 mL/min (>60); Globulin 2.5 g/dL (1.7-4.1); Glucose 96 mg/dL (70-99); HDL Cholesterol 70 mg/dL (40-60); HEMOLYSIS < 15 (0-50); LDL Cholesterol Calculated 145 mg/dL (<100); Potassium 4.6 mmol/L (3.4-5.1); Sodium 138 mmol/L (137-145); Total Protein 6.7 g/dL (6.3-8.2); Triglycerides 95 mg/dL (35-150)
== END ==
PROVIDERS: Family Provider Family Medicine; PCP Family Medicine; Referring Provider Family Medicine; Visit Provider Family Medicine
DX: Z00.00 Encounter for general adult medical examination without abnormal findings (principal); E78.2 Mixed hyperlipidemia; R79.89 Other specified abnormal findings of blood chemistry; I10 Essential (primary) hypertension
CPT/HCPCS: 36415; 80053; 80061; 84443; 85025

== ENCOUNTER → 2025-07-06 13:33 | Outpatient (CLI) | payer OTHER, SELFPAY ==
[2025-07-06 14:49] LABS: Alanine Aminotransferase 30 IU/L (<50); Albumin 4.6 g/dL (3.5-5.0); Albumin Globulin Ratio 1.8 (1.0-2.8); Alkaline Phosphatase 57 U/L (38-126); Globulin 2.6 g/dL (1.7-4.1); HEMOLYSIS < 15 (0-50); Total Protein 7.2 g/dL (6.3-8.2)
== END ==
PROVIDERS: Family Provider Family Medicine; PCP Family Medicine; Referring Provider Family Medicine; Visit Provider Family Medicine
DX: R79.89 Other specified abnormal findings of blood chemistry (principal)
CPT/HCPCS: 36415; 80076